=== PATIENT | male | born 1980 | race Hispanic/Latino ===

== ENCOUNTER 2022-06-22 18:27 | Emergency (ER) | payer OTHER ==
[~2022-06-22] VITALS: Ht 170.2 cm; Wt 58.5 kg
== END 2022-06-22 21:25 | disposition home or self-care (01) ==
LOC: ED 18:27
DX: S16.1XXA Strain of muscle, fascia and tendon at neck level, initial encounter (principal); V69.40XA Driver of heavy transport vehicle injured in collision with unspecified motor vehicles in traffic accident, initial encounter
CPT/HCPCS: 36415; 70450; 71045; 72125; 73552; 80053; 81001; 85025; 99284-25; A9270